=== PATIENT | male | born 1995 | race Hispanic/Latino ===

== ENCOUNTER 2022-06-23 02:26 | Emergency (ER) | payer SELFPAY ==
[2022-06-23] MEDS ORDERED: Lidocaine 1% PF 5 ML VIAL ONE (02:56)
[2022-06-23] MEDS ORDERED: CEFAZOLIN 1 GM VIAL ONE (02:58)
[2022-06-23] MEDS ORDERED: Ketorolac Tromethamine 30 MG/ML VIAL ONE (02:58)
[2022-06-23] MEDS ORDERED: Morphine 4 MG/ML VIAL ONE (02:58)
== END 2022-06-23 05:48 | disposition home or self-care (01) ==
LOC: ERS 02:26
DX: S62.627B Displaced fracture of middle phalanx of left little finger, initial encounter for open fracture (principal); W31.89XA Contact with other specified machinery, initial encounter
CPT/HCPCS: 96365; 96366; 96375; J0690; J1885; J2270